=== PATIENT | male | born 1955 | race Caucasian/White ===

== ENCOUNTER → 2017-04-20 | Outpatient (CLI) | payer OTHER ==
[~2017-04-20] MED LIST: DESLORATADINE5 M1 PO; ECOTRIN81 MG PO; ESCITALOPRAM OX20 MG PO; KLONOPIN TAB 00.5 MG PO; LIPITOR TAB 1010 MG PO; OMEPRAZOLE20 M1 PO; SYNTHROID150 MCG PO; SYNTHROID175 MCG PO; VITAMIN B 12 PO; VITAMIN D 11000 UNIT PO; ZEBETA 5 MG TAB5 MG PO
== END ==
LOC: KOH-I 15:39
DX: M54.5 Low back pain (principal); M47.896 Other spondylosis, lumbar region
CPT/HCPCS: 72110